=== PATIENT | female | born 1960 | race Caucasian/White ===

== ENCOUNTER 2019-11-02 14:57 | Inpatient (IN) | payer OTHER ==
[~2019-11-02] VITALS: Ht 213.4 cm; Wt 5.0 kg
--- NOTE | 2019-11-02 15:08 | NUR ---
FEMINA DE 59 ANOS,ALERTA,ORIENTADA EN PAULINA JOSE RAMON ESFERAS EN COMPANIA DE FAMILIAR. REFIERE DOLOR ABDOMINAL,VIENTRE BAJO DE IGLESIAS DE EVOLUCION.
[2019-11-02] MEDS ORDERED: ZYRTEC10 M3 (15:13)
[2019-11-02] MEDS ORDERED: ASPIR 8181 MG (15:13)
[2019-11-02] MEDS ORDERED: SYNTHROID175 MCG (15:13)
[2019-11-02] MEDS ORDERED: SINGULAIR10 MG (15:13)
[2019-11-02] MEDS ORDERED: LIPITOR20 MG (15:13)
[2019-11-02] MEDS ORDERED: OSTERA TABLET1 EACH PO (15:14)
[2019-11-02] MEDS ORDERED: METFORMIN HCL500 M3 (15:14)
--- NOTE | 2019-11-02 16:35 | NUR ---
SE EDUCA A PTE SOBRE TX MEDICO ESTA REFIERE ENTENDER. SE GRIFFIN MUESTRAS DE LAB UTILIZANDO MEDIDAS ASEPTICAS. SE COLOCA H/L A PTE EL CUAL SE ENCUENTRA PATENTE YUDELKA DE EDEMA Y ENROJECIMIENTO. SE NOTIFICA ESTUDIO DE CT PENDIENTE A REALIZAR. PTE SE CONTINUA MONITORIANDO POR CAMBIOS EN YEUNG CONDICION.
--- NOTE | 2019-11-02 18:59 | NUR ---
PACIENTE REFIERE PICOR EN BRAZO LT DONDE ESTABA RECIBIENDO CIPRO IV, SE OBSERVAN LAS VENAS DEL BRAZO LT QUIROGA, CIPRO YA HABIA TERMINADO DE BAJAR, SE NOTIFICA A DR JIMENEZ QUIEN ORDENA ADMINISTRAR SOLUMEDROL 125 MG IV Y BENADRYL 50 MG IV.
[2019-11-05] MEDS ORDERED: CEFTRIAXONE2 GM IV (07:40)
[2019-11-05] MEDS ORDERED: METRONIDAZOLE500 MG PO (10:13)
[2019-11-05] MEDS ORDERED: INTESTINEX680 M1 PO (10:13)
== END 2019-11-05 20:50 | disposition home health service (06) | DRG 392 ==
LOC: ER 14:57 → SURH 21:16
PROVIDERS: ADMIT Internal Medicine
PROC: BW21ZZZ Computerized Tomography (CT Scan) of Abdomen and Pelvis (ICD-10-PCS; principal; 2019-11-02)
DX: K57.32 Diverticulitis of large intestine without perforation or abscess without bleeding (principal); J45.31 Mild persistent asthma with (acute) exacerbation; N20.0 Calculus of kidney; E03.8 Other specified hypothyroidism; R10.32 Left lower quadrant pain; E11.9 Type 2 diabetes mellitus without complications; Z79.4 Long term (current) use of insulin

== ENCOUNTER 2019-12-09 11:06 | Outpatient (CLI) | payer OTHER ==
[~2019-12-09 11:06] MED LIST: ASPIR 8181 MG; CEFTRIAXONE2 GM IV; INTESTINEX680 M1 PO; LIPITOR20 MG; METFORMIN HCL500 M3; METRONIDAZOLE500 MG PO; OSTERA TABLET1 EACH PO; SINGULAIR10 MG; SYNTHROID175 MCG; ZYRTEC10 M3
== END 2019-12-09 11:11 | disposition home or self-care (01) ==
LOC: LAB 11:06
DX: N39.0 Urinary tract infection, site not specified (principal)

== ENCOUNTER 2020-11-22 13:12 | Outpatient (CLI) | payer OTHER | END 2020-11-22 13:17 | disposition home or self-care (01) | LOC: LAB 13:12 | PROVIDERS: ATTEND Internal Medicine Gastroenterology | DX: N39.0 Urinary tract infection, site not specified (principal); R10.32 Left lower quadrant pain ==

== ENCOUNTER 2020-12-14 13:13 | Outpatient (CLI) | payer OTHER | END 2020-12-14 13:26 | disposition home or self-care (01) | LOC: LAB 13:13 | PROVIDERS: ATTEND Internal Medicine Gastroenterology | DX: N39.0 Urinary tract infection, site not specified (principal) ==

== ENCOUNTER 2020-12-20 06:30 | Day surgery (SDC) | payer OTHER | END 2020-12-20 10:00 | disposition home or self-care (01) | LOC: AMB-ENDOS 06:30 | PROVIDERS: ATTEND Surgery | DX: D12.0 Benign neoplasm of cecum (principal); D12.2 Benign neoplasm of ascending colon; D12.4 Benign neoplasm of descending colon; Z20.822 Contact with and (suspected) exposure to COVID-19 ==

== ENCOUNTER → 2021-01-09 10:48 | Outpatient (CLI) | payer OTHER ==
[~2021-01-09 10:48] MED LIST changes: +ULTRACET PO
== END | disposition home or self-care (01) ==
LOC: LAB 10:48
PROVIDERS: ATTEND Internal Medicine Gastroenterology
DX: N39.0 Urinary tract infection, site not specified (principal); R10.32 Left lower quadrant pain; R10.84 Generalized abdominal pain

== ENCOUNTER 2021-02-06 10:45 | Inpatient (IN) | payer OTHER ==
[~2021-02-06] VITALS: Ht 170.2 cm; Wt 76.2 kg
[~2021-02-06 10:45] MED LIST changes: -ULTRACET PO
[2021-02-16] MEDS ORDERED: INTESTINEX680 M1 PO (08:58)
[2021-02-16] MEDS ORDERED: ULTRACET PO (08:58)
== END 2021-02-16 09:51 | disposition home or self-care (01) | DRG 331 ==
LOC: O/R 02-13 07:52 → SURG 02-13 07:52 → SURH 02-13 10:30 → SURG 02-13 13:39
PROVIDERS: ADMIT Surgery; ATTEND Surgery
PROC: 0DTP4ZZ Resection of Rectum, Percutaneous Endoscopic Approach (ICD-10-PCS; 2021-02-13)
PROC: 0DTN4ZZ Resection of Sigmoid Colon, Percutaneous Endoscopic Approach (ICD-10-PCS; principal; 2021-02-13 10:30)
DX: K57.32 Diverticulitis of large intestine without perforation or abscess without bleeding (principal); D12.2 Benign neoplasm of ascending colon; D12.4 Benign neoplasm of descending colon; E11.9 Type 2 diabetes mellitus without complications; I10 Essential (primary) hypertension; E03.8 Other specified hypothyroidism

== ENCOUNTER 2021-05-23 11:57 | Outpatient (CLI) | payer OTHER ==
[~2021-05-23 11:57] MED LIST changes: +ULTRACET PO
== END 2021-05-23 12:05 | disposition home or self-care (01) ==
LOC: LAB 11:57
PROVIDERS: ATTEND Internal Medicine Gastroenterology
DX: R10.32 Left lower quadrant pain (principal); N35.028 Other post-traumatic urethral stricture, female

== ENCOUNTER 2022-01-31 08:20 | Outpatient (CLI) | payer OTHER | END 2022-01-31 08:21 | disposition home or self-care (01) | LOC: LAB 08:20 | PROVIDERS: ATTEND Internal Medicine Gastroenterology | DX: M13.80 Other specified arthritis, unspecified site (principal); N39.0 Urinary tract infection, site not specified; R10.84 Generalized abdominal pain; E03.9 Hypothyroidism, unspecified ==

== ENCOUNTER 2022-01-31 08:49 | Outpatient (CLI) | payer OTHER | END 2022-01-31 08:59 | disposition home or self-care (01) | LOC: RAD 08:49 | PROVIDERS: ATTEND Internal Medicine Gastroenterology | DX: M77.12 Lateral epicondylitis, left elbow (principal) ==